=== PATIENT | female | born 1935 | race Caucasian/White ===

== ENCOUNTER 2016-12-03 14:20 | Inpatient (IN) | payer MEDICARE, OTHER ==
[2016-12-03] MEDS: SODIUM CHLORIDE 0.9% FLUSH 10 ML SOL IV PRN ×2 (14:50→15:09)
[2016-12-03 15:02] LABS: BASOPHILS % (AUTO) 1 % (0-3); EOSINOPHILS % (AUTO) 2 % (0-9); HEMATOCRIT 45 % (35-47); MEAN CORPUSCULAR HGB CONC 31.9 gm/dl (32.0-36.0); MEAN CORPUSCULAR VOLUME 93 fL (81-99); MONOCYTES % (AUTO) 7.2 % (0-12); NEUTROPHILS % (AUTO) 52.6 % (37-80)
[2016-12-03 15:17] LABS: CALCIUM 10.1 mg/dl (8.5-10.1); POTASSIUM 4.2 mMol/L (3.5-5.1)
[2016-12-03] MEDS ORDERED: SODIUM CHLORIDE 0.9% 500 ML 500 ML IV ONE (19:56)
[2016-12-03 20:27] LABS: HEMOGLOBIN A1C 11.7 % (4.8-6.0)
[2016-12-03] MEDS ORDERED: MORPHINE SULFATE 10 MG/ML SOL IV PRN (21:06)
[2016-12-03] MEDS: NOVOLOG FLEXPEN SC SCH ×2 (21:49→23:53)
[2016-12-03] MEDS: ACETAMINOPHEN 500 MG 500 MG TAB PO PRN (21:50)
[2016-12-03] MEDS: SODIUM CHLORIDE 0.9% 1000ML 1,000 ML IV SCH (22:38)
[2016-12-04 07:33] LABS: CALCIUM 9.3 mg/dl (8.5-10.1); POTASSIUM 3.9 mMol/L (3.5-5.1)
[2016-12-04 07:50] LABS: BASOPHILS % (AUTO) 1 % (0-3); EOSINOPHILS % (AUTO) 2 % (0-9); HEMATOCRIT 42 % (35-47); MEAN CORPUSCULAR VOLUME 92 fL (81-99); MONOCYTES % (AUTO) 8.5 % (0-12); NEUTROPHILS % (AUTO) 52.4 % (37-80)
[2016-12-04] MEDS: NOVOLOG FLEXPEN SC SCH ×6 (09:54→23:40)
[2016-12-04] MEDS ORDERED: DEXTROSE/SALINE 0.45% 1,000 ML IV SCH (12:15)
[2016-12-04] MEDS: SODIUM CHLORIDE 0.9% 1000ML 1,000 ML IV SCH (16:54)
[2016-12-04 17:03] LABS: CALCIUM 8.8 mg/dl (8.5-10.1); POTASSIUM 3.6 mMol/L (3.5-5.1)
[2016-12-04] MEDS: DEXTROSE/SALINE 0.45% 1,000 ML IV SCH ×3 (17:25→22:36)
[2016-12-04 22:28] LABS: CALCIUM 8.4 mg/dl (8.5-10.1); POTASSIUM 3.5 mMol/L (3.5-5.1)
[2016-12-04] MEDS: SODIUM CHLORIDE 0.45% 1000 ML 1,000 ML IV SCH (22:56)
[2016-12-05] MEDS: SODIUM CHLORIDE 0.45% 1000 ML 1,000 ML IV SCH ×2 (03:57→13:02)
[2016-12-05] MEDS: NOVOLOG FLEXPEN SC SCH ×4 (07:01→20:55)
[2016-12-05 08:15] LABS: BASOPHILS % (AUTO) 1 % (0-3); EOSINOPHILS % (AUTO) 2 % (0-9); HEMATOCRIT 34 % (35-47); MEAN CORPUSCULAR HGB CONC 33.4 gm/dl (32.0-36.0); MEAN CORPUSCULAR VOLUME 93 fL (81-99); MONOCYTES % (AUTO) 6.8 % (0-12); NEUTROPHILS % (AUTO) 52.5 % (37-80)
[2016-12-05 08:27] LABS: CALCIUM 8.1 mg/dl (8.5-10.1); POTASSIUM 3.3 mMol/L (3.5-5.1)
[2016-12-05] MEDS ORDERED: SODIUM CHLORIDE 0.45% 1000 ML 1,000 ML with POTASSIUM CHLORIDE 2 MEQ/ML 20 MEQ IV SCH (09:30)
[2016-12-05] MEDS ORDERED: POTASSIUM CHLORIDE 2 MEQ/ML SOL IV ONE ×3 (09:34→21:03)
[2016-12-05] MEDS: SODIUM CHLORIDE 0.45% 1000 ML 1,000 ML with POTASSIUM CHLORIDE 2 MEQ/ML 20 MEQ IV SCH ×3 (09:39→21:09)
[2016-12-05] MEDS: ACETAMINOPHEN 500 MG 500 MG TAB PO PRN (16:19)
[2016-12-05 18:26] VITALS: O2SAT 96
[2016-12-06] MEDS ORDERED: POTASSIUM CHLORIDE 2 MEQ/ML SOL IV ONE ×2 (02:21→07:55)
[2016-12-06] MEDS: SODIUM CHLORIDE 0.45% 1000 ML 1,000 ML with POTASSIUM CHLORIDE 2 MEQ/ML 20 MEQ IV SCH ×3 (02:29→11:46)
[2016-12-06 07:34] LABS: CALCIUM 7.8 mg/dl (8.5-10.1); POTASSIUM 4.3 mMol/L (3.5-5.1)
[2016-12-06 07:40] LABS: BASOPHILS % (AUTO) 1 % (0-3); EOSINOPHILS % (AUTO) 3 % (0-9); HEMATOCRIT 32 % (35-47); MEAN CORPUSCULAR HGB CONC 32.5 gm/dl (32.0-36.0); MEAN CORPUSCULAR VOLUME 92 fL (81-99); MONOCYTES % (AUTO) 6.5 % (0-12); NEUTROPHILS % (AUTO) 48.1 % (37-80)
[2016-12-06] MEDS: NOVOLOG FLEXPEN SC SCH ×2 (09:01→13:02)
[2016-12-06 09:11] VITALS: BP 106/61; PULSE 68; RESP 16; TEMP 97.7
== END 2016-12-06 11:45 | DRG 65 ==
LOC: ED 14:20 → ACUTE CARE 16:35
PROVIDERS: ADMIT Family Medicine; ATTEND Family Medicine
DX: I63.9 Cerebral infarction, unspecified (principal); R40.2312 Coma scale, best motor response, none, at arrival to emergency department; R40.2222 Coma scale, best verbal response, incomprehensible words, at arrival to emergency department; G81.94 Hemiplegia, unspecified affecting left nondominant side; R40.2142 Coma scale, eyes open, spontaneous, at arrival to emergency department; R29.715 NIHSS score 15; E87.0 Hyperosmolality and hypernatremia; E11.65 Type 2 diabetes mellitus with hyperglycemia; G81.04 Flaccid hemiplegia affecting left nondominant side; F03.90 Unspecified dementia, unspecified severity, without behavioral disturbance, psychotic disturbance, mood disturbance, and anxiety
CPT/HCPCS: 36415; 70450; 80048; 82962; 83036; 85025; 93005; 93012; 99291; J2270; J3480; J1815